=== PATIENT | female | born 1935 | race Caucasian/White ===

== ENCOUNTER 2019-08-04 07:05 | Day surgery (SDC) | payer MEDICARE, BC ==
[~2019-08-04 07:05] MED LIST: Dextrose 5%-0.45% NaCl 1,000 ML IV SCH; Midazolam 1 MG/ML 2 ML SDV ONE; Sodium Chloride 0.9% 10 ML Syringe FLUSH PRN; fentaNYL 100 MCG/2 ML SDV ONE
[2019-08-04] MEDS ORDERED: fentaNYL 100 MCG/2 ML SDV IV ONE ×2 (07:06→08:46)
[2019-08-04] MEDS ORDERED: Midazolam 1 MG/ML 2 ML SDV IV ONE ×2 (07:06→08:47)
--- NOTE | 2019-08-04 09:38 | OR ---
DATE: 08/04/2019 PROCEDURE: Esophagogastroduodenoscopy and multiple pinch biopsies. INSTRUMENT USED: [id number]-HQ190 Olympus video panendoscope. PREMEDICATIONS: No oral or topical anesthesia used. Fentanyl 50 mcg intravenous, Versed 1 mg intravenous. The procedure was done under pulse oximetry, BP recording, and coordinate measuring machine programmer. INDICATION: The patient with persistent abdominal pain and diarrhea as well as iron-deficiency anemia unexplained. Esophagogastroduodenoscopy is performed for detection of any active erosive lesions, malignancy also under consideration, H. pylori status to be determined, small bowel biopsies to be obtained for celiac disease if indicated, endoscopic hemostasis therapy if needed. PROCEDURE IN DETAIL: The scope was passed with ease. Adequate visualization of the esophagus was made from proximal to distal areas. No upper esophageal lesions identified. No distal esophageal stricture. No uphill or downhill varices noted. No Kathleen-Sanchez tear noted. No esophageal polyp or tumor mass identified. No erosive changes were noted. Z-line was seen at around 35 cm distal to the oral verge. No proximal gastric varices noted. Gastric fundus examination by retroflexion showed no polypoid lesions. No gastric ulcer, malignant mass, or vascular ectasia identified. Duodenal bulb showed no ulcer. Visualized second part of the duodenum was unremarkable. Multiple pinch biopsies, 4 in number, were taken from different areas of second part of the duodenum and tissues were also obtained from the duodenal bulb at 9 and 12 o'clock positions and sent for any histopathologic evidence of celiac disease. Multiple pinch biopsies were also obtained from the gastric antrum and proximal body and sent for PyloriTek test for H. pylori. No bleeding was noted from any of the visualized areas at the completion of the examination. Photographs were taken of the duodenal bulb, gastric antrum, fundus, and distal esophagus. IMPRESSION: Normal study. The patient tolerated the procedure well. [facility] /[id number]
== END 2019-08-04 10:56 | disposition home or self-care (01) ==
LOC: DL.ENDO 07:05
PROVIDERS: ATTEND Internal Medicine Gastroenterology
DX: R19.7 Diarrhea, unspecified (principal); D50.9 Iron deficiency anemia, unspecified; D51.9 Vitamin B12 deficiency anemia, unspecified; I10 Essential (primary) hypertension; K21.9 Gastro-esophageal reflux disease without esophagitis; J45.909 Unspecified asthma, uncomplicated; E03.9 Hypothyroidism, unspecified; J84.10 Pulmonary fibrosis, unspecified; M51.36 Other intervertebral disc degeneration, lumbar region; M19.90 Unspecified osteoarthritis, unspecified site; Z88.6 Allergy status to analgesic agent; Z88.5 Allergy status to narcotic agent; Z88.8 Allergy status to other drugs, medicaments and biological substances; Z86.010 Personal history of colon polyps; Z90.11 Acquired absence of right breast and nipple; Z86.73 Personal history of transient ischemic attack (TIA), and cerebral infarction without residual deficits; Z90.49 Acquired absence of other specified parts of digestive tract; Z90.89 Acquired absence of other organs; Z98.890 Other specified postprocedural states
CPT/HCPCS: 43239; 87077; J2250; J3010; J7042

== ENCOUNTER 2019-08-06 05:38 | Day surgery (SDC) | payer MEDICARE, BC ==
[2019-08-06] MEDS ORDERED: Midazolam 1 MG/ML 2 ML SDV IV ONE ×5 (05:39→07:20)
[2019-08-06] MEDS ORDERED: fentaNYL 100 MCG/2 ML SDV IV ONE ×3 (05:39→07:18)
[2019-08-06] MEDS ORDERED: Dextrose 5%-0.45% NaCl 1,000 ML IV SCH (06:00)
[2019-08-06] MEDS ORDERED: Sodium Chloride 0.9% 10 ML Syringe FLUSH PRN (06:00)
[2019-08-06] MEDS ORDERED: fentaNYL 100 MCG/2 ML SDV ONE (06:20)
[2019-08-06] MEDS ORDERED: Midazolam 1 MG/ML 2 ML SDV ONE (06:20)
--- NOTE | 2019-08-06 09:28 | OR ---
DATE: 08/06/2019 PROCEDURE: Total colonoscopy and multiple pinch biopsies. INSTRUMENT USED: PCF-H190DL Olympus video colonoscope. PREMEDICATIONS: Fentanyl 100 mcg intravenous, Versed 3 mg intravenous, nasal O2 cannula. The procedure was done under pulse oximetry, BP recording, and procurement director. INDICATION: The patient with chronic diarrhea and iron-deficiency anemia, unexplained and not responsive to medical measures. Colonoscopic examination is done for detection of any polypoid lesions and removal, biopsies to be obtained for any evidence of microscopic colitis, endoscopic hemostasis therapy if needed. DESCRIPTION OF PROCEDURE: Initial rectal exam was unremarkable. Rigid anoscopy was normal. The colonoscope was passed with ease. Numerous scattered diverticula were noted in the distal left colon along with deformity. The scope was passed with ease up to the ileocecal area. Photographs were taken of the normal-appearing cecum identified by landmarks of appendiceal orifice and thin- lipped ileocecal folds. No bleeding was noted from any of the visualized areas at the commencement of the examination. The bowel preparation was found to be adequate, Fortuna scale 2 in all the regions. No stricture. No vascular ectasia. No large isolated ulcerations seen. No evidence of diffuse inflammatory bowel disease in the form of friability, contact bleeding, or ulcerations. No polyp or tumor mass identified. Probing the proximal sides of folds and flexures using adequate distention and clearing up the stool material, withdrawal of the scope was made. Multiple pinch biopsies were taken from the normal-appearing mucosa of the mid transverse colon, mid descending colon, and rectosigmoid, and sent for any histopathologic evidence of microscopic colitis. No bleeding was noted from any of the visualized areas at the completion of examination. IMPRESSION: Diverticulosis. The patient tolerated the procedure well. [facility] /[id number]
== END 2019-08-06 09:57 | disposition home or self-care (01) ==
LOC: DL.ENDO 05:38
PROVIDERS: ATTEND Internal Medicine Gastroenterology
DX: K52.9 Noninfective gastroenteritis and colitis, unspecified (principal); K57.30 Diverticulosis of large intestine without perforation or abscess without bleeding; D50.9 Iron deficiency anemia, unspecified; D51.9 Vitamin B12 deficiency anemia, unspecified; I10 Essential (primary) hypertension; K21.9 Gastro-esophageal reflux disease without esophagitis; J45.909 Unspecified asthma, uncomplicated; E03.9 Hypothyroidism, unspecified; M51.36 Other intervertebral disc degeneration, lumbar region; J84.10 Pulmonary fibrosis, unspecified; M19.90 Unspecified osteoarthritis, unspecified site; Z88.5 Allergy status to narcotic agent; Z88.6 Allergy status to analgesic agent; Z88.8 Allergy status to other drugs, medicaments and biological substances; Z86.010 Personal history of colon polyps; Z86.73 Personal history of transient ischemic attack (TIA), and cerebral infarction without residual deficits; Z90.49 Acquired absence of other specified parts of digestive tract; Z90.89 Acquired absence of other organs; Z98.890 Other specified postprocedural states
CPT/HCPCS: 45380; J2250; J3010; J7042; 88305

== ENCOUNTER 2020-12-01 09:35 | Emergency (ER) | payer MEDICARE, BC ==
--- NOTE | 2020-12-01 09:50 | EDM.PDOC ---
ED HPI GENERAL MEDICAL PROBLEM - General Chief Complaint: Flank Pain Stated Complaint: FELL INJURED RIGHT SIDE Time Seen by Provider: 12/01/20 09:50 Source of Information: Reports: Patient, Family (), RN, RN Notes Reviewed History Limitations: Reports: No Limitations - History of Present Illness INITIAL COMMENTS - FREE TEXT/NARRATIVE: Pt presents to ER with c/o right posterior/lateral chest wall/rib pain sustained from a ground level fall this morning. Pt got her foot tangled in the bedding and tripped, hitting her ribs on a dresser. Denies head injury, neck pain, or any other areas of injury. Onset: Today Duration: Constant Location: Reports: Chest Quality: Reports: Ache Severity: Severe Improves with: Reports: Immobilization, Rest Worsens with: Reports: Breathing, Movement Associated Symptoms: Reports: No Other Symptoms Right Trunk Pain Score (Numeric/FACES): 10 - Related Data Allergies Allergy/AdvReac Type Severity Reaction Status Date / Time aspirin Allergy Swelling Verified 08/06/19 06:38 codeine Allergy Other Verified 08/06/19 06:38 valsartan [From Diovan] Allergy Other Verified 08/06/19 06:38 Home Meds: Home Meds Anastrozole [Arimidex] 1 mg PO DAILY 08/03/19 [History] Clopidogrel Bisulfate [Clopidogrel] 75 mg PO DAILY 08/03/19 [History] Cyanocobalamin (Vitamin B-12) [Cyanocobalamin Injection] 1,000 mcg INJECT .MONTHLY 08/03/19 [History] Levothyroxine [Synthroid] 88 mcg PO DAILY 08/03/19 [History] Losartan Potassium 100 mg PO DAILY 08/03/19 [History] Multivitamin [Multivitamins] 1 tab PO DAILY 08/03/19 [History] Nystatin [Nystatin Ointment] 1 squirt TOP DAILY 08/03/19 [History] Triamcinolone Acetonide [Kenalog 0.1% Crm] 1 squirt TOP ASDIRECTED 08/03/19 [History] amLODIPine [Norvasc] 5 mg PO DAILY 08/03/19 [History] Past Medical History HEENT History: Reports: None Cardiovascular History: Reports: Heart Murmur, Hypertension Respiratory History: Reports: Asthma, COPD, Pulmonary Fibrosis Gastrointestinal History: Reports: Chronic Diarrhea, GERD Genitourinary History: Reports: None MEDICAL MANAGER History: Reports: Musculoskeletal History: Reports: Arthritis, Osteoarthritis Neurological History: Reports: TIA Psychiatric History: Reports: None Endocrine/Metabolic History: Reports: Hypothyroidism Hematologic History: Reports: Iron Deficiency Immunologic History: Reports: None Oncologic (Cancer) History: Reports: Breast Dermatologic History: Other Dermatologic History: HAS UNGT FOR TOE INFECTION - Infectious Disease History Infectious Disease History: Reports: Chicken Pox, Measles - Past Surgical History HEENT Surgical History: Reports: Adenoidectomy, Tonsillectomy Cardiovascular Surgical History: Reports: None GI Surgical History: Reports: Appendectomy, Cholecystectomy, Colonoscopy, EGD Female Surgical History: Reports: Other (See Below) Other Female Surgeries/Procedures: R) breast lumpectomy Musculoskeletal Surgical History: Reports: Arthroscopic Knee Social & Family History - Family History Family Medical History: No Pertinent Family History - Caffeine Use Caffeine Use: Reports: Coffee Caffeine Use Comment: 3 CUPS DAILY - Living Situation & Occupation Living situation: Reports: , with Spouse Occupation: Retired ED ROS GENERAL - Review of Systems Review Of Systems: Comprehensive ROS is negative, except as noted in HPI. ED EXAM, GENERAL - Physical Exam Exam: See Below Exam Limited By: No Limitations General Appearance: Alert, WD/WN, No Apparent Distress Eye Exam: Bilateral Eye: Normal Inspection Nose: Normal Inspection Throat/Mouth: Normal Inspection Head: Atraumatic, Normocephalic Neck: Normal Inspection, Supple, Non-Tender, Full Range of Motion Respiratory/Chest: No Respiratory Distress, Lungs Clear, No Accessory Muscle Use, Decreased Breath Sounds, Other (Left posterior/lateral chest wall tenderness) Cardiovascular: Normal Peripheral Pulses, Regular Rate, Rhythm, No Edema, No Gallop GI/Abdominal: Normal Bowel Sounds, Soft, Non-Tender Back Exam: CVA Tenderness (R). No: CVA Tenderness (L), Vertebral Tenderness Extremities: Normal Inspection Neurological: Alert, Oriented, CN II-XII Intact, Normal Cognition, Normal Gait, No Motor/Sensory Deficits Psychiatric: Normal Affect, Normal Mood Skin Exam: Warm, Dry, Intact, Normal Color, No Rash Course - Vital Signs Last Recorded V/S: Last Vital Signs Temp 97.7 F 12/01/20 09:48 Pulse 82 12/01/20 09:48 Resp 20 12/01/20 09:48 BP 151/57 H 12/01/20 09:48 Pulse Ox 95 12/01/20 09:48 - Orders/Labs/Meds Orders: Active Orders 24 hr Category Date Time Status RT Incentive Spirometry [RC] ONETIME Care 12/01/20 10:24 Ordered Ribs 2V wo Chest Rt [CR] Urgent Exams 12/01/20 09:54 Taken Meds: Medications Discontinued Medications Generic Name Dose Route Start Last Admin Trade Name Stephany PRN Reason Stop Dose Admin Lidocaine HCl 30 gm 12/01/20 10:22 12/01/20 10:30 Lidocaine 5% Oint 35.44 Gm Tube TOP 12/01/20 10:23 1 applic ONETIME ONE Administration Ondansetron HCl 4 mg 12/01/20 10:23 12/01/20 10:30 Ondansetron 4 Mg Tab.Dis PO 12/01/20 10:24 4 mg ONETIME ONE Administration Oxycodone/Acetaminophen 1 tab 12/01/20 10:23 12/01/20 10:30 Acetaminophen/Oxycodone 325-5 Mg Tab PO 12/01/20 10:24 1 tab ONETIME ONE Administration - Radiology Interpretation Free Text/Narrative:: [facility] Final Radiology Report Call: [phone] assistance Online chat: [email or web address] Name: JOHN TERRELL Age: 85Years F Date: 12/01/2020 SSN: -- : [id number] Study: CR RIBS 2V WO CHEST RT Requesting Physician: CAROLYNE ASUL Images: 2 Addl Studies: Provided Clinical History: Fall, Rt posterior chest wall/rib pain Contrast: Contrast Medium: Contrast Amount: Contrast Method: CONFIDENTIALITY STATEMENT This report is intended only for use by the referring physician, and only in accordance with law. If you received this in error, call [phone]. Page 1 of 1 PROCEDURE INFORMATION: Exam: XR Right Ribs Exam date and time: 12/01/2020 10:06 AM Age: 85 years old Clinical indication: Injury or trauma; Fall; Rib area; Blunt trauma (contusions or hematomas); Additional info: Fall, RT posterior chest wall/rib pain TECHNIQUE: Imaging protocol: XR Right ribs. Views: 2 views. COMPARISON: No relevant prior studies available. FINDINGS: Bones/joints: Acute mildly displaced anterolateral right 9th and 10th rib fractures. Pleural space: No pleural effusion or pneumothorax. Soft tissues: Normal. IMPRESSION: Acute right 9th and 10th rib fractures. No hemothorax or pneumothorax. Thank you for allowing us to participate in the care of your patient. Dictated and Authenticated by: Don Schaeffer MD 12/01/2020 10:46 AM Central Time ([place] & [place]) Departure - Departure Time of Disposition: 10:49 Disposition: Home, Self-Care 01 Condition: Good Clinical Impression: Multiple fractures of ribs, right side, initial encounter for closed fracture - Discharge Information *PRESCRIPTION DRUG MONITORING PROGRAM REVIEWED*: No *COPY OF PRESCRIPTION DRUG MONITORING REPORT IN PATIENT JUAN R: No Forms: ED Department Discharge Additional Instructions: Rx: Hydrocodone APAP 5mg/325mg Use Lidocaine 5% Ointment to area of pain every 4 hours as needed. Use the incentive spirometer once every hour while awake until rib pain resolves. Follow up in clinic next week for recheck. Sepsis Event Note (ED) - Focused Exam Vital Signs: Vital Signs Temp Pulse Resp BP Pulse Ox 12/01/20 09:48 97.7 F 82 20 151/57 H 95 - My Orders Last 24 Hours: My Active Orders 12/01/20 09:54 Ribs 2V wo Chest Rt [CR] Urgent 12/01/20 10:24 RT Incentive Spirometry [RC] ONETIME - Assessment/Plan Last 24 Hours: My Active Orders 12/01/20 09:54 Ribs 2V wo Chest Rt [CR] Urgent 12/01/20 10:24 RT Incentive Spirometry [RC] ONETIME
[2020-12-01] MEDS ORDERED: Lidocaine 5% Oint 35.44 GM Tube TOP ONE (10:22)
[2020-12-01] MEDS ORDERED: Ondansetron 4 MG Tab.DIS PO ONE (10:23)
[2020-12-01] MEDS ORDERED: Acetaminophen/oxyCODONE 325-5 MG Tab PO ONE (10:23)
--- NOTE | 2020-12-01 10:47 | CR ---
PROCEDURE INFORMATION: Exam: XR Right Ribs Exam date and time: 12/01/2020 10:06 AM Age: 85 years old Clinical indication: Injury or trauma; Fall; Rib area; Blunt trauma (contusions or hematomas); Additional info: Fall, RT posterior chest wall/rib pain TECHNIQUE: Imaging protocol: XR Right ribs. Views: 2 views. COMPARISON: No relevant prior studies available. FINDINGS: Bones/joints: Acute mildly displaced anterolateral right 9th and 10th rib fractures. Pleural space: No pleural effusion or pneumothorax. Soft tissues: Normal. IMPRESSION: Acute right 9th and 10th rib fractures. No hemothorax or pneumothorax.
== END 2020-12-01 11:08 | disposition home or self-care (01) ==
LOC: DL.ED 09:35
DX: S22.41XA Multiple fractures of ribs, right side, initial encounter for closed fracture (principal); I10 Essential (primary) hypertension; J44.9 Chronic obstructive pulmonary disease, unspecified; E03.9 Hypothyroidism, unspecified; Z88.6 Allergy status to analgesic agent; Z88.5 Allergy status to narcotic agent; Z88.8 Allergy status to other drugs, medicaments and biological substances; Z79.899 Other long term (current) drug therapy; Z79.02 Long term (current) use of antithrombotics/antiplatelets; Z86.73 Personal history of transient ischemic attack (TIA), and cerebral infarction without residual deficits; W18.30XA Fall on same level, unspecified, initial encounter
CPT/HCPCS: 71100-RT; 99283; 99283-25; A9270-GY

== ENCOUNTER 2023-12-07 12:38 | Emergency (ER) | payer MEDICARE, BC ==
[2023-12-07 13:09] LABS: APPEARANCE,URINE CLOUDY (CLEAR); BILIRUBIN,URINE NEGATIVE (NEGATIVE); COLOR,URINE YELLOW (YELLOW); GLUCOSE,URINE NEGATIVE (NEGATIVE); KETONES,URINE TRACE (NEGATIVE); LEUKOCYTE ESTERASE,URINE MODERATE (NEGATIVE); NITRITE,URINE NEGATIVE (NEGATIVE); OCCULT BLOOD,URINE LARGE (NEGATIVE); PH,URINE 5.5 (5.0-9.0); PROTEIN,URINE 100 (NEGATIVE)
[2023-12-07] MEDS ORDERED: Ondansetron 4 MG Tab.DIS PO ONE (13:38)
[2023-12-07] MEDS ORDERED: Phenazopyridine 95 MG Tab PO ONE (13:38)
[2023-12-07] MEDS ORDERED: Ciprofloxacin 500 MG Tab PO ONE (13:39)
[2023-12-07 14:01] LABS: RBC,URINE 30-40 /HPF (0-5)
[2023-12-07 14:02] LABS: BACTERIA,URINE FEW /HPF (0-FEW/HPF); EPITHELIAL CELLS,URINE FEW /HPF (NOT SEEN)
[2023-12-07] MEDS: Take Home: Ondansetron 4 MG Tab.DIS, 5 Tab Pack PO ONE (14:02)
[2023-12-07] MEDS: Take Home: Ciprofloxacin HCl 500 MG, 6 Tab Pack PO ONE (14:02)
[2023-12-07] MEDS: Take Home: Phenazopyridine 95 MG Tab, 4 Tab Pack PO ONE (14:02)
== END 2023-12-07 14:06 | disposition home or self-care (01) ==
LOC: DL.ED 12:38
DX: N39.0 Urinary tract infection, site not specified (principal); I10 Essential (primary) hypertension; J44.89 Other specified chronic obstructive pulmonary disease; E03.9 Hypothyroidism, unspecified; Z88.6 Allergy status to analgesic agent; Z88.5 Allergy status to narcotic agent; Z88.8 Allergy status to other drugs, medicaments and biological substances; Z79.899 Other long term (current) drug therapy; Z86.19 Personal history of other infectious and parasitic diseases; Z90.49 Acquired absence of other specified parts of digestive tract
CPT/HCPCS: 81001; 87086; 99283; A9270; Q0162

== ENCOUNTER 2023-12-31 09:08 | Emergency (ER) | payer MEDICARE, BC ==
[2023-12-31] MEDS: predniSONE 20 MG Tab PO ONE (10:29)
[2023-12-31] MEDS: traMADol 50 MG Tab PO ONE (10:29)
[2023-12-31] MEDS: Lidocaine 5% Oint 35.44 GM Tube TOP ONE (10:31)
== END 2023-12-31 11:30 | disposition home or self-care (01) ==
LOC: DL.ED 09:08
DX: M19.021 Primary osteoarthritis, right elbow (principal); M47.22 Other spondylosis with radiculopathy, cervical region; M25.511 Pain in right shoulder; G89.29 Other chronic pain; I10 Essential (primary) hypertension; J44.9 Chronic obstructive pulmonary disease, unspecified; K21.9 Gastro-esophageal reflux disease without esophagitis; E03.9 Hypothyroidism, unspecified; Z90.49 Acquired absence of other specified parts of digestive tract; Z79.890 Hormone replacement therapy; Z79.899 Other long term (current) drug therapy; Z88.5 Allergy status to narcotic agent; Z88.6 Allergy status to analgesic agent
CPT/HCPCS: 73030; 73080; 99283; 99284; A9270; J7512

== ENCOUNTER 2024-01-13 05:23 | Day surgery (SDC) | payer MEDICARE, BC ==
[2024-01-13] MEDS: Dextrose 5%-0.45% NaCl 1,000 ML IV SCH (06:07)
[2024-01-13] MEDS ORDERED: Midazolam 1 MG/ML 2 ML SDV ONE (06:15)
[2024-01-13] MEDS ORDERED: fentaNYL 100 MCG/2 ML SDV ONE (06:16)
[2024-01-13] MEDS: fentaNYL 100 MCG/2 ML SDV IV ONE (06:24)
[2024-01-13] MEDS: Midazolam 1 MG/ML 2 ML SDV IV ONE (06:25)
== END 2024-01-13 08:09 | disposition home or self-care (01) ==
LOC: DL.ENDO 05:23
PROVIDERS: ATTEND Internal Medicine Gastroenterology
DX: K29.50 Unspecified chronic gastritis without bleeding (principal); K31.89 Other diseases of stomach and duodenum; J44.9 Chronic obstructive pulmonary disease, unspecified; K21.9 Gastro-esophageal reflux disease without esophagitis; I10 Essential (primary) hypertension; Z79.899 Other long term (current) drug therapy; Z88.5 Allergy status to narcotic agent; Z88.6 Allergy status to analgesic agent; Z91.011 Allergy to milk products
CPT/HCPCS: 87077; 88305; 88342; J2250; J3010; J7042

== ENCOUNTER 2024-03-30 01:06 | Emergency (ER) | payer MEDICARE, BC ==
[2024-03-30] MEDS: Iopamidol 612 MG/ML 100 ML Bottle IVPUSH ONE (01:20)
[2024-03-30] MEDS: Sodium Chloride 0.9% 1,000 ML IV ONE ×2 (01:20→04:26)
[2024-03-30 01:33] LABS: BASOPHILS PERCENT AUTO 0.4 % (0.0-1.0); EOSINOPHILS PERCENT AUTO 2.9 % (1.0-3.0); HEMATOCRIT 27.7 % (37.0-47.0); HEMOGLOBIN 9.1 g/dL (12.0-16.0); MEAN CORPUSCULAR HEMOGLOBIN 28.9 pg (27.0-34.0); MEAN CORPUSCULAR HGB CONC 32.9 g/dL (33.0-35.0); MEAN CORPUSCULAR VOLUME 87.9 fL (80-100); MONOCYTES PERCENT AUTO 7.6 % (2-8); NEUTROPHILS PERCENT AUTO 71.1 % (42.2-75.2); PLATELET COUNT,PLT 400 10^3/uL (150-450); RED BLOOD CELL COUNT 3.15 10^6/uL (4.2-5.4); WHITE BLOOD CELL COUNT,WBC 7.3 10^3/uL (5.0-10.0)
[2024-03-30] MEDS: Ondansetron 4 MG/2 ML SDV IVPUSH ONE (01:43)
[2024-03-30 02:02] LABS: A/G RATIO 1.2; ALANINE AMINOTRANSFERASE,ALT 22 U/L (14-59); ALBUMIN 3.7 g/dL (3.4-5.0); ALKALINE PHOSPHATASE 67 U/L (46-116); ANION GAP 12.1 mEq/L (7-13); ASPARTATE AMNIOTRANSFERASE,AST 26 U/L (15-37); BILIRUBIN TOTAL 0.4 mg/dL (0.2-1.0); BLOOD UREA NITROGEN,BUN 16 mg/dL (7-18); BUN/CREATININE RATIO 12.2 (No establ ref range); CARBON DIOXIDE,CO2 26 mmol/L (21-32); CHLORIDE,CL 91 mmol/L (98-107); CREATININE 1.31 mg/dL (0.55-1.02); ESTIMATED GFR 39 mL/min (>=60); GLUCOSE RANDOM 124 mg/dL (70-99); LIPASE 44 U/L (16-77); MAGNESIUM 1.8 mg/dL (1.8-2.4); POTASSIUM,K 4.1 mmol/L (3.5-5.1); PROTEIN TOTAL,TP 6.9 g/dL (6.4-8.2); SODIUM,NA 125 mmol/L (136-145)
[2024-03-30] MEDS: Famotidine 20 MG/2 ML SDV IVPUSH ONE (02:04)
[2024-03-30 03:04] LABS: INR 0.9 (0.9-1.2); PROTHROMBIN TIME 9.7 SEC (9.0-12.0)
[2024-03-30 04:26] LABS: APPEARANCE,URINE CLEAR (CLEAR); BILIRUBIN,URINE NEGATIVE (NEGATIVE); COLOR,URINE YELLOW (YELLOW); GLUCOSE,URINE NEGATIVE (NEGATIVE); KETONES,URINE NEGATIVE (NEGATIVE); LEUKOCYTE ESTERASE,URINE NEGATIVE (NEGATIVE); NITRITE,URINE NEGATIVE (NEGATIVE); OCCULT BLOOD,URINE NEGATIVE (NEGATIVE); PH,URINE 5.5 (5.0-9.0); PROTEIN,URINE TRACE (NEGATIVE); UROBILINOGEN,URINE 0.2 mg/dL (0.2-1.0)
[2024-03-30 04:41] LABS: BACTERIA,URINE FEW /HPF (0-FEW/HPF); EPITHELIAL CELLS,URINE FEW /HPF (NOT SEEN); HYALINE CASTS,URINE FEW; RBC,URINE 0-5 /HPF (0-5); WBC,URINE 0-5 /HPF (0-5/HPF)
== END 2024-03-30 05:35 ==
LOC: DL.ED 01:06
DX: C76.2 Malignant neoplasm of abdomen (principal); N17.9 Acute kidney failure, unspecified; E86.0 Dehydration; D64.9 Anemia, unspecified; E87.1 Hypo-osmolality and hyponatremia; K21.9 Gastro-esophageal reflux disease without esophagitis; J45.909 Unspecified asthma, uncomplicated; E03.9 Hypothyroidism, unspecified; Z86.16 Personal history of COVID-19; Z90.49 Acquired absence of other specified parts of digestive tract; Z79.899 Other long term (current) drug therapy; Z88.5 Allergy status to narcotic agent; Z88.8 Allergy status to other drugs, medicaments and biological substances; W19.XXXA Unspecified fall, initial encounter
CPT/HCPCS: 36415; 70450; 71045; 74177; 80053; 81001; 82947; 83690; 83735; 84484; 85025; 85610; 86850; 86900; 86901; 93005; 93010; 96361; 96374; 96375; 99284; 99285-25; J2405; J3490; J7030; Q9967

== ENCOUNTER 2024-05-19 22:47 | Inpatient (IN) | payer MEDICARE, BC ==
[2024-05-19] MEDS ORDERED: Sodium Chloride 0.9% 10 ML Syringe FLUSH PRN (23:39)
[2024-05-19 23:56] LABS: HEMATOCRIT 25.9 % (37.0-47.0); MEAN CORPUSCULAR HGB CONC 30.9 g/dL (33.0-35.0); MEAN CORPUSCULAR VOLUME 93.8 fL (80-100); PLATELET COUNT,PLT 391 10^3/uL (150-450); RED BLOOD CELL COUNT 2.76 10^6/uL (4.2-5.4); WHITE BLOOD CELL COUNT,WBC 11.1 10^3/uL (5.0-10.0)
[2024-05-20] LABS: BASOPHILS PERCENT AUTO 0.2 % (0.0-1.0); EOSINOPHILS PERCENT AUTO 0.1 % (1.0-3.0); MONOCYTES PERCENT AUTO 15.1 % (2-8); NEUTROPHILS PERCENT AUTO 73.6 % (42.2-75.2)
[2024-05-20 00:17] LABS: BAND PERCENT MAN 2 %; LYMPHOCYTES PERCENT MAN 12 % (20-50); MONOCYTES PERCENT MAN 16 % (2-8); SEG NEUTROPHILS PERCENT MAN 70 % (42-75)
[2024-05-20 00:18] LABS: ALBUMIN 2.5 g/dL (3.4-5.0); BILIRUBIN TOTAL 0.6 mg/dL (0.2-1.0); BUN/CREATININE RATIO 13.1 (No establ ref range); CALCIUM 9.7 mg/dL (8.5-10.1); CREATININE 1.75 mg/dL (0.55-1.02); EST CRCL DRUG DOSING (CG) 16.44 mL/min; PROTEIN TOTAL,TP 6.8 g/dL (6.4-8.2)
[2024-05-20 00:20] LABS: A/G RATIO 0.58
[2024-05-20] MEDS: fentaNYL 100 MCG/2 ML SDV IVPUSH ONE ×2 (01:05→04:44)
[2024-05-20 04:11] LABS: APPEARANCE,URINE CLOUDY (CLEAR); BILIRUBIN,URINE SMALL (NEGATIVE); COLOR,URINE DARK YELLOW (YELLOW); GLUCOSE,URINE NEGATIVE (NEGATIVE); KETONES,URINE NEGATIVE (NEGATIVE); LEUKOCYTE ESTERASE,URINE SMALL (NEGATIVE); NITRITE,URINE NEGATIVE (NEGATIVE); OCCULT BLOOD,URINE NEGATIVE (NEGATIVE); PH,URINE 5.5 (5.0-9.0); PROTEIN,URINE 100 (NEGATIVE)
[2024-05-20 04:20] LABS: AMORPHOUS SEDIMENT,URINE FEW /HPF (NOT SEEN); BACTERIA,URINE MANY /HPF (0-FEW/HPF); EPITHELIAL CELLS,URINE MANY /HPF (NOT SEEN); RBC,URINE 0-5 /HPF (0-5); WBC,URINE 30-40 /HPF (0-5/HPF)
[2024-05-20] MEDS ORDERED: Albuterol/Ipratropium 3.0-0.5 MG/3 ML Neb Soln NEB PRN ×2 (04:59→06:15)
[2024-05-20] MEDS: Iopamidol 612 MG/ML 100 ML Bottle IVPUSH ONE (05:39)
[2024-05-20] MEDS ORDERED: Metoclopramide 10 MG/2 ML SDV IV PRN (06:15)
[2024-05-20] MEDS ORDERED: Acetaminophen 325 MG Tab PO PRN (06:15)
[2024-05-20] MEDS: HYDROmorphone 1 MG/ML Syringe IVPUSH PRN (07:19)
[2024-05-20] MEDS: Scopalamine 1mg/3day Transdermal Patch TOP ONE (10:02)
[2024-05-20] MEDS: methylPREDNISolone Sodium Succinate 40 MG/1 ML SDV IVPUSH SCH (10:09)
[2024-05-20] MEDS: cefTRIAXone 1 GM Vial IVPUSH SCH (10:14)
[2024-05-20] MEDS: Sodium Chloride 0.9% 1,000 ML IV SCH (10:38)
[2024-05-20] MEDS: Ondansetron 4 MG/2 ML SDV IVPUSH PRN (10:46)
[2024-05-20 15:06] LABS: CORONAVIRUS COVID-19 NAA NEGATIVE (NEGATIVE); INFLUENZA A NAA NEGATIVE (NEGATIVE); INFLUENZA B NAA NEGATIVE (NEGATIVE)
[2024-05-20] MEDS: Acetaminophen/oxyCODONE 325-5 MG Tab PO PRN (18:04)
[2024-05-20] MEDS: Melatonin 3 MG Tab PO PRN (21:16)
[2024-05-20] MEDS: guaiFENesin 600 MG Tab.ER PO SCH (21:17)
[2024-05-20] MEDS: Check SCOPOLAMINE Patch TRDERM SCH (21:22)
[2024-05-21 06:41] LABS: HEMATOCRIT 24.4 % (37.0-47.0); HEMOGLOBIN 7.4 g/dL (12.0-16.0); LYMPHOCYTES PERCENT AUTO 7.1 % (20.5-50.1); MEAN CORPUSCULAR HEMOGLOBIN 28.9 pg (27.0-34.0); MEAN CORPUSCULAR HGB CONC 30.3 g/dL (33.0-35.0); MEAN CORPUSCULAR VOLUME 95.3 fL (80-100); MONOCYTES PERCENT AUTO 5.5 % (2-8); NEUTROPHILS PERCENT AUTO 87.3 % (42.2-75.2); PLATELET COUNT,PLT 388 10^3/uL (150-450); RED BLOOD CELL COUNT 2.56 10^6/uL (4.2-5.4); WHITE BLOOD CELL COUNT,WBC 16.9 10^3/uL (5.0-10.0)
[2024-05-21 06:45] LABS: BASOPHILS PERCENT AUTO 0.1 % (0.0-1.0)
[2024-05-21 07:02] LABS: ALBUMIN 2.3 g/dL (3.4-5.0); ANION GAP 16.2 mEq/L (7-13); BILIRUBIN TOTAL 0.5 mg/dL (0.2-1.0); BUN/CREATININE RATIO 13.4 (No establ ref range); C-REACTIVE PROTEIN 9.1 ng/dL (<=0.50); CREATININE 2.16 mg/dL (0.55-1.02); EST CRCL DRUG DOSING (CG) 13.32 mL/min; MAGNESIUM 1.7 mg/dL (1.8-2.4); POTASSIUM,K 5.2 mmol/L (3.5-5.1); PROTEIN TOTAL,TP 6.5 g/dL (6.4-8.2)
[2024-05-21 07:05] LABS: A/G RATIO 0.55
[2024-05-21] MEDS ORDERED: Aluminum Hydroxide/Magnesium Hydroxide/Simethicone Susp 30 ML Cup PO PRN (10:18)
[2024-05-21] MEDS: Calcium Carbonate 500 MG Tab.Chew PO PRN (10:40)
[2024-05-21] MEDS: fentaNYL 25 MCG/HR Transdermal Patch TRDERM SCH (10:41)
[2024-05-21] MEDS: Pantoprazole 40 MG Vial IVPUSH ONE (10:43)
[2024-05-21] MEDS: HYDROmorphone 1 MG/ML Syringe IVPUSH PRN (10:47)
[2024-05-21] MEDS ORDERED: Loperamide 2 MG Cap PO PRN (10:57)
[2024-05-21] MEDS: Magnesium Sulfate/Water Premix 2 GM in Premix Bag 1 BAG IV ONE (10:58)
[2024-05-21] MEDS: Sodium Chloride 0.9% 500 ML IV ONE (10:59)
[2024-05-21] MEDS: Sodium Polystyrene Sulfonate 15 GM/60 ML Susp 60 ML Bot PO ONE (11:12)
[2024-05-21] MEDS: Sodium Chloride 0.9% 1,000 ML IV SCH (11:46)
[2024-05-21] MEDS: Hydrocortisone 1% Crm 30 GM Tube TOP PRN (19:42)
[2024-05-21] MEDS: diphenhydrAMINE 50 MG/ML SDV IVPUSH PRN (20:01)
[2024-05-21] MEDS: Azithromycin 500 MG in Sodium Chloride 0.9% 250 ML IV SCH (20:13)
[2024-05-22 06:25] LABS: BASOPHILS PERCENT AUTO 0.1 % (0.0-1.0); HEMATOCRIT 22.8 % (37.0-47.0); LYMPHOCYTES PERCENT AUTO 5.8 % (20.5-50.1); MEAN CORPUSCULAR HEMOGLOBIN 28.3 pg (27.0-34.0); MEAN CORPUSCULAR HGB CONC 29.8 g/dL (33.0-35.0); MONOCYTES PERCENT AUTO 5.9 % (2-8); NEUTROPHILS PERCENT AUTO 88.2 % (42.2-75.2); PLATELET COUNT,PLT 351 10^3/uL (150-450)
[2024-05-22 06:31] LABS: HEMOGLOBIN 6.8 g/dL (12.0-16.0)
[2024-05-22 06:48] LABS: ALBUMIN 2.3 g/dL (3.4-5.0); ANION GAP 11.6 mEq/L (7-13); BILIRUBIN TOTAL 0.4 mg/dL (0.2-1.0); BUN/CREATININE RATIO 14.7 (No establ ref range); C-REACTIVE PROTEIN 4.8 ng/dL (<=0.50); CALCIUM 8.4 mg/dL (8.5-10.1); CREATININE 1.84 mg/dL (0.55-1.02); EST CRCL DRUG DOSING (CG) 15.64 mL/min; MAGNESIUM 2.2 mg/dL (1.8-2.4); POTASSIUM,K 3.6 mmol/L (3.5-5.1); PROTEIN TOTAL,TP 6.1 g/dL (6.4-8.2)
[2024-05-22 06:51] LABS: A/G RATIO 0.61
[2024-05-22] MEDS: Check Patch TRDERM SCH (08:45)
[2024-05-22] MEDS: Acetaminophen 325 MG Tab PO ONE (08:56)
[2024-05-22] MEDS ORDERED: Azithromycin 500 MG in Sodium Chloride 0.9% 250 ML IV ONE (09:00)
[2024-05-22] MEDS: Dexamethasone 4 MG/ML SDV IVPUSH ONE (09:27)
== END 2024-05-22 15:40 | disposition home or self-care (01) | DRG 951 ==
LOC: DL.ED 22:47 → DL.MS 05-20 04:42
PROVIDERS: ADMIT Internal Medicine; ATTEND Internal Medicine
PROC: 30233N1 Transfusion of Nonautologous Red Blood Cells into Peripheral Vein, Percutaneous Approach (ICD-10-PCS; principal; 2024-05-19)
DX: R09.02 Hypoxemia (principal); R53.1 Weakness; R63.0 Anorexia; C76.2 Malignant neoplasm of abdomen; J44.9 Chronic obstructive pulmonary disease, unspecified; Z51.5 Encounter for palliative care; J96.01 Acute respiratory failure with hypoxia; J44.1 Chronic obstructive pulmonary disease with (acute) exacerbation; E87.1 Hypo-osmolality and hyponatremia; N17.9 Acute kidney failure, unspecified; Z79.02 Long term (current) use of antithrombotics/antiplatelets; E44.0 Moderate protein-calorie malnutrition; N39.0 Urinary tract infection, site not specified; C49.A0 Gastrointestinal stromal tumor, unspecified site; Z66 Do not resuscitate; K21.9 Gastro-esophageal reflux disease without esophagitis; I10 Essential (primary) hypertension; M19.90 Unspecified osteoarthritis, unspecified site; J47.9 Bronchiectasis, uncomplicated; M54.50 Low back pain, unspecified; E03.9 Hypothyroidism, unspecified; H54.7 Unspecified visual loss; H91.90 Unspecified hearing loss, unspecified ear; D64.81 Anemia due to antineoplastic chemotherapy; T45.1X5A Adverse effect of antineoplastic and immunosuppressive drugs, initial encounter; F41.9 Anxiety disorder, unspecified; E86.0 Dehydration; E83.52 Hypercalcemia; Z88.6 Allergy status to analgesic agent; Z88.5 Allergy status to narcotic agent; Z88.8 Allergy status to other drugs, medicaments and biological substances; Z86.16 Personal history of COVID-19; Z86.73 Personal history of transient ischemic attack (TIA), and cerebral infarction without residual deficits; Z90.49 Acquired absence of other specified parts of digestive tract; Z96.659 Presence of unspecified artificial knee joint; Z98.890 Other specified postprocedural states; Z79.899 Other long term (current) drug therapy
CPT/HCPCS: 0240U; 36415; 36430; 51702; 71250; 74176; 80053; 81001; 83735; 83880; 84484; 85025; 86140; 86850; 86900; 86901; 86920; 86922; 87086; 87088; 87186; 96374; 99223; 99233; 99239; 99284; 99285; A9270-GY; J0456; J0696; J1171; J1200; J2405; J2470; J2919; J3010; J3475; J7030; J7040; J7050; P9016